=== PATIENT | female | born 1995 | race American Indian/Alaskan Native ===

== ENCOUNTER 2021-02-18 20:43 | Emergency (ER) | payer MEDICAID, OTHER ==
[~2021-02-18] VITALS: Ht 154.9 cm; Wt 99.8 kg
[2021-02-19 01:55] VITALS: BP 133/84
[2021-02-19 03:02] LABS: Urine Amorphous Crystal FEW /hpf (None Seen); Urine Bacteria NONE SEEN /hpf (None Seen); Urine Blood 2+ /uL (Negative); Urine Mucus FEW (None Seen); Urine Specific Gravity 1.033 (1.001-1.035); Urine WBC 134 /hpf (0 - 5); Urine WBC Clumps PRESENT /hpf (None Seen)
[2021-02-19] MEDS ORDERED: cefTRIAXone SOD 1,000 MG VL IM ONE (03:15)
== END 2021-02-19 03:35 | disposition home or self-care (01) ==
LOC: ER 20:46
DX: N39.0 Urinary tract infection, site not specified (principal); N76.0 Acute vaginitis
CPT/HCPCS: 81001; 81025; 96372; 99283; J0696

== ENCOUNTER 2021-12-09 17:13 | Emergency (ER) | payer MEDICAID ==
[~2021-12-09] VITALS: Ht 154.9 cm; Wt 98.4 kg
[2021-12-09] MEDS ORDERED: PERCOT PO (19:44)
[2021-12-09 20:30] VITALS: BP 125/74
== END 2021-12-09 20:43 | disposition home or self-care (01) ==
LOC: ER 17:13
DX: S52.91XA Unspecified fracture of right forearm, initial encounter for closed fracture (principal); X58.XXXA Exposure to other specified factors, initial encounter; Y93.89 Activity, other specified; Y92.89 Other specified places as the place of occurrence of the external cause; Y99.8 Other external cause status
CPT/HCPCS: 29105

== ENCOUNTER 2023-03-28 12:01 | Emergency (ER) | payer MEDICAID ==
[~2023-03-28] VITALS: Ht 154.9 cm; Wt 96.3 kg
[~2023-03-28 12:01] MED LIST: PERCOT PO
[2023-03-28 13:56] LABS: Urine Bacteria NONE SEEN /hpf (None Seen); Urine Blood Negative /uL (Negative); Urine Clarity Clear (Clear); Urine Color Yellow (Yellow); Urine Mucus FEW (None Seen); Urine Protein, UAD Negative (Negative); Urine Specific Gravity 1.026 (1.001-1.035); Urine Urobilinogen Normal (Negative); Urine WBC 4 /hpf (0 - 5); Urine pH 5.5 (5.0-8.0)
[2023-03-28 17:14] VITALS: BP 122/72; PULSE 79; RESP 16; TEMP 98.7; O2SAT 96
== END 2023-03-28 17:15 | disposition left against medical advice (07) ==
LOC: ER 12:01
DX: R30.9 Painful micturition, unspecified (principal); Z53.21 Procedure and treatment not carried out due to patient leaving prior to being seen by health care provider
CPT/HCPCS: 81001